=== PATIENT | female | born 1995 | race Caucasian/White ===

== ENCOUNTER 2018-07-07 01:26 | Inpatient (IN) | END 2018-07-09 17:34 | disposition home or self-care (01) | DRG 638 ==

== ENCOUNTER 2019-02-11 15:04 | Emergency (ER) | payer OTHER ==
[~2019-02-11] VITALS: Ht 165.1 cm; Wt 62.2 kg
[~2019-02-11 15:04] MED LIST: CLOT45CR6 VAG; DOCU-144 PO; INSU100I33 SC; METF-849 PO; SITA100T11 PO
[2019-02-11 15:19] VITALS: Ht 165.1 cm; Wt 62.2 kg
--- NOTE | 2019-02-11 17:42 | ERD ---
ER Documentation Chief Complaint Chief Complaint pt bib self with c/o "cyst" to right inner thigh x 2 days HPI Patient is a 23-year-old female with diabetes, reports compliance with DM medi cations, presents to the ER for concerns of a "cyst" in her right groin region times 2-3 days. Patient denies any fevers or chills. Patient denies any bleeding or drainage. She states the affected area is tender to touch. Patient is up-to-date with vaccinations. Patient was referred to the ER by her provider at the [facility] for incision and drainage. Patient states she does have a ongoing history of vaginal candidiasis. She states she often scratches her vaginal area as it is extremely itchy. Patient states she does use topical antifungal creams however they do not help. ROS All systems reviewed and are negative except as per history of present illness. Medications Home Meds Active Scripts Fluconazole* (Diflucan*) 150 Mg Tablet, 150 MG PO ONCE, #2 TAB Take first dose today and 2nd dose 1 week from today Prov:MICHELLE CHAVEZ PA-C 02/11/19 Cephalexin* (Keflex*) 500 Mg Capsule, 500 MG PO TID for 7 Days, CAP Prov:MICHELLE CHAVEZ PA-C 02/11/19 Sulfamethoxazole/Trimethoprim* (Bactrim Ds* Tablet) 1 Each Tablet, 1 TAB PO BID, #14 TAB Prov:MICHELLE CHAVEZ PA-C 02/11/19 Acetaminophen* (Tylophen*) 500 Mg Capsule, 1 CAP PO Q6H PRN for PAIN AND OR ELEVATED TEMP, #20 CAP Prov:MICHELLE CHAVEZ PA-C 02/11/19 Docusate Sodium* (Colace*) 100 Mg Capsule, 100 MG PO BID PRN for CONSTIPATION for 30 Days, #60 CAP Prov:SATHISH WESTON MD 07/09/18 Clotrimazole (Clotrimazole) Vaginal Cream..g., 1 APPLIC VAG HS for 3 Days Prov:SATHISH WESTON MD 07/09/18 Sitagliptin* (Januvia*) 100 Mg Tablet, 100 MG PO DAILY for 30 Days, #30 TAB Prov:SATHISH WESTON MD 07/09/18 Insulin Glargine,Hum.rec.anlog (Basaglar Kwikpen U-100) 100 Unit/1 Ml Insuln.pen, 100 UNIT SC 15 UNITS QHS for 30 Days, EA Prov:SATHISH WESTON MD 07/09/18 Metformin* (Glucophage*) 500 Mg Tab, 1000 MG PO BID WITH MEALS for 30 Days, TAB Prov:SATHISH WESTON MD 07/09/18 Allergies Allergies: Coded Allergies: No Known Allergy (Unverified , 07/06/18) PMhx/Soc Medical and Surgical Hx: pt denies Surgical Hx History of Surgery: No Anesthesia Reaction: No (unknown) Hx Neurological Disorder: No Hx Respiratory Disorders: No Hx Cardiac Disorders: No Hx Psychiatric Problems: No Hx Miscellaneous Medical Probl: Yes (DM) Hx Alcohol Use: Yes (Occasionally) Hx Substance Use: No Hx Tobacco Use: No Smoking Status: Never smoker FmHx Family History: No diabetes Physical Exam Vitals Vital Signs Date Temp Pulse Resp B/P (MAP) Pulse Ox O2 O2 Flow FiO2 Time Delivery Rate 02/11/19 98.4 94 18 124/83 99 15:19 (97) Physical Exam GENERAL: Well-developed, well-nourished female. Appears in no acute distress. Speaking in full sentences. EYES: Pupils are equally reactive bilaterally. EOMs grossly intact. No co njunctival erythema. ENT: Moist mucous membranes. No uvula deviation. No kissing tonsils. NECK: Supple. No meningismus. Normal range of motion of the neck. LUNG: Clear to auscultation bilaterally. No rhonchi, wheezing, rales or coarse breath sounds. HEART: Regular rate and rhythm. No murmurs, rubs or gallops. MANAGER AMBULATORY: BILLY Joyce present during this part of the exam. 2 cm draining abscess noted in the right outer labia. Bilateral inner labia are noted to be erythematous and excoriated. Patient reports history of chronic candidiasis. EXTREMITIES: Equal pulses bilaterally. No peripheral clubbing, cyanosis or edema. No unilateral leg swelling. NEUROLOGIC: Alert and oriented. Moving all four extremities without any difficulty. Normal speech. Steady gait. SKIN: Normal color. Warm and dry. No rashes or lesions. Results 24 hrs Current Medications Medications Dose Sig/Cliff Start Time Status Last (Trade) Ordered Route PRN Stop Time Admin Dose Reason Admin Lidocaine 20 ml ONCE ONCE 02/11/19 DC (Xylocaine SC 18:00 1% (Mdv) 20 02/11/19 18:01 ml) 1 tab ONCE ONCE 02/11/19 Acetaminophen PO 18:30 / 02/11/19 18:31 Hydrocodone Bitart ([place] (5/325)) Procedures/MDM ED COURSE: The patient was stable throughout ED course. I kept the patient and/or family informed of laboratory and diagnostic imaging results throughout the ED course. PROCEDURES: INCISION AND DRAINAGE: The patient was verbally consented prior to procedure. Patient was explained the risks, benefits and alternatives to this procedure. Location: R labia Abscess size: 2 cm Anesthesia: local 1% lidocaine, 3 cc Preparation: The area was prepped in a sterile fashion using betadine x3 cleanses. A sterile field was prepared. Technique: A sterile 11 blade scalpel was used to make a 1 cm linear incision into the abscess. Procedure: A midline abscess incision was made using a sterile scalpel in a linear fashion. Purulent material was expressed with direct pressure. Blunt probing was used to break up loculations. Bleeding was minimal. Packing: half iodoform packing was placed into the wound. The patient tolerated the procedure well with no complications. The wound was dressed in sterile gauze. The patient was neurovascularly intact post-procedure. Post-procedural wound care was discussed with the patient. MEDICATIONS GIVEN: Ponce [place] Leon Patient tolerated medication well with no adverse reactions. Patient reported improvement in pain. MEDICAL DECISION MAKING: This is a 23-year-old female with a history of diabetes, chronic candidiasis, who presents the ER for concerns of a abscess in her left inner labia times 2 days. She did admit to compliance with her DM medications. Patient denies any fevers at home. Vital signs were reviewed. Patient was afebrile. Incision and drainage was performed, see note above. Patient will be given Diflucan for her chronic ongoing candidiasis. Patient was encouraged to avoid scratching the affected area. Wound recheck was advised in 2 days. Low suspicion for deep space infection, sepsis DKA. PRESCRIPTIONS: Tylenol, Bactrim, Keflex, Diflucan DISCHARGE: At this time, the patient is stable for discharge and outpatient management. Post-procedural wound care was discussed with the patient. The patient has been advised to return to the ER in 2 days for a wound check. I have instructed the patient to promptly return to the ER for any new or worsening symptoms including increasing pain, fever, warmth, redness or swelling. The patient and/or family expressed understanding of and agreement with this plan. All questions were answered. Home care instructions were provided. Disclaimer: Inadvertent spelling and grammatical errors are likely due to EHR/dictation software use and do not reflect on the overall quality of patient care. Also, please note that the electronic time recorded on this note does not necessarily reflect the actual time of the patient encounter. Departure Diagnosis: Primary Impression: Abscess Additional Impression: Diabetes Diabetes mellitus type: other specified (including SHIRA) Diabetes mellitus director federal insulin use: unspecified fpc insulin use status Diabetes mellitus complication status: with unspecified complications Qualified Codes: E13.8 - Other specified diabetes mellitus with unspecified complications Condition: Fair Patient Instructions: Abscess, Incision And Drainage Referrals: [facility] YOU HAVE RECEIVED A MEDICAL SCREENING EXAM AND THE RESULTS INDICATE THAT YOU DO NOT HAVE A CONDITION THAT REQUIRES URGENT TREATMENT IN THE EMERGENCY DEPARTMENT. FURTHER EVALUATION AND TREATMENT OF YOUR CONDITION CAN WAIT UNTIL YOU ARE SEEN IN YOUR DOCTORS OFFICE WITHIN THE NEXT 1-2 DAYS. IT IS YOUR RESPONSIBILITY TO MAKE AN APPOINTMENT FOR FOL-UP CARE. IF YOU HAVE A PRIMARY DOCTOR --you should call your primary doctor and schedule an appointment IF YOU DO NOT HAVE A PRIMARY DOCTOR YOU CAN CALL OUR PHYSICIAN REFERRAL HOTLINE AT IF YOU CAN NOT AFFORD TO SEE A PHYSICIAN YOU CAN CHOSE FROM THE FOLLOWING [facility] [address] [facility]. [facility] [address] [facility]. [facility] [address] [facility]. [facility] [address] [facility] [facility] [address] [facility]. [facility]. [address] [facility]. [facility] YOU HAVE RECEIVED A MEDICAL SCREENING EXAM AND THE RESULTS INDICATE THAT YOU DO NOT HAVE A CONDITION THAT REQUIRES URGENT TREATMENT IN THE EMERGENCY DEPARTMENT. FURTHER EVALUATION AND TREATMENT OF YOUR CONDITION CAN WAIT UNTIL YOU ARE SEEN IN YOUR DOCTORS OFFICE WITHIN THE NEXT 1-2 DAYS. IT IS YOUR RESPONSIBILITY TO MAKE AN APPOINTMENT FOR FOLOW-UP CARE. IF YOU HAVE A PRIMARY DOCTOR --you should call your primary doctor and schedule and appointment IF YOU DO NOT HAVE A PRIMARY DOCTOR YOU CAN CALL OUR PHYSICIAN REFERRAL HOTLINE AT . IF YOU CAN NOT AFFORD TO SEE A PHYSICIAN YOU CAN CHOSE FROM THE FOLLOWING [facility] INSTITUTIONS: [facility] [address] [place] [address] [facility] [address] [place] [address] [facility] + [facility] [address] [place] [address] Additional Instructions: Wound recheck advised in 2 days. Take antibiotics as prescribed. Call your primary care doctor TOMORROW for an appointment during the next 1-2 days.See the doctor sooner or return here if your condition worsens before your appointment time. MICHELLE CHAVEZ PA-C Feb 11, 2019 17:42
[2019-02-11] MEDS ORDERED: LIDOCAINE 1% (MDV) 20 ML INJ SC ONE (18:00)
[2019-02-11] MEDS ORDERED: ACET500C5 PO (18:07)
[2019-02-11] MEDS ORDERED: SULF1TAB31 PO (18:07)
[2019-02-11] MEDS ORDERED: CEPH-443 PO (18:08)
[2019-02-11] MEDS ORDERED: FLUC150T PO (18:08)
[2019-02-11] MEDS ORDERED: HYDROCODONE/APAP (5/325) TAB PO ONE (18:30)
== END 2019-02-11 18:15 | disposition home or self-care (01) ==
LOC: FTE 15:04
DX: N76.4 Abscess of vulva (principal); E13.8 Other specified diabetes mellitus with unspecified complications; Z79.4 Long term (current) use of insulin
CPT/HCPCS: 56405; Z7502; Z7610

== ENCOUNTER 2019-02-13 10:21 | Emergency (ER) | payer OTHER ==
[~2019-02-13] VITALS: Wt 64.5 kg
[~2019-02-13 10:21] MED LIST changes: +ACET500C5 PO; +CEPH-443 PO; +FLUC150T PO; +SULF1TAB31 PO
[2019-02-13 10:23] VITALS: BP 121/73; PULSE 96; RESP 20
--- NOTE | 2019-02-13 12:29 | ERD ---
ER Documentation Chief Complaint Chief Complaint here for 2 day wound check for and I&D done 2 days ago. no complaints HPI This is a 23-year-old female with a history of diabetes mellitus who presents ED for wound check. Patient had an incision and drainage performed on abscess near the right groin 2 days ago. Patient states the packing is in place. Patient admits to some drainage. Denies any redness, swelling, severe pain or fever or chills. Taking antibiotics as prescribed ROS All systems reviewed and are negative except as per history of present illness. Medications Home Meds Active Scripts Fluconazole* (Diflucan*) 150 Mg Tablet, 150 MG PO ONCE, #2 TAB Take first dose today and 2nd dose 1 week from today Prov:MICHELLE CHAVEZ PA-C 02/11/19 Cephalexin* (Keflex*) 500 Mg Capsule, 500 MG PO TID for 7 Days, CAP Prov:MICHELLE CHAVEZ PA-C 02/11/19 Sulfamethoxazole/Trimethoprim* (Bactrim Ds* Tablet) 1 Each Tablet, 1 TAB PO BID, #14 TAB Prov:MICHELLE CHAVEZ PA-C 02/11/19 Acetaminophen* (Tylophen*) 500 Mg Capsule, 1 CAP PO Q6H PRN for PAIN AND OR ELEVATED TEMP, #20 CAP Prov:MICHELLE CHAVEZ PA-C 02/11/19 Docusate Sodium* (Colace*) 100 Mg Capsule, 100 MG PO BID PRN for CONSTIPATION for 30 Days, #60 CAP Prov:SATHISH WESTON MD 07/09/18 Clotrimazole (Clotrimazole) Vaginal Cream..g., 1 APPLIC VAG HS for 3 Days Prov:SATHISH WESTON MD 07/09/18 Sitagliptin* (Januvia*) 100 Mg Tablet, 100 MG PO DAILY for 30 Days, #30 TAB Prov:SATHISH WESTON MD 07/09/18 Insulin Glargine,Hum.rec.anlog (Basaglar Kwikpen U-100) 100 Unit/1 Ml Insuln.pen, 100 UNIT SC 15 UNITS QHS for 30 Days, EA Prov:SATHISH WESTON MD 07/09/18 Metformin* (Glucophage*) 500 Mg Tab, 1000 MG PO BID WITH MEALS for 30 Days, TAB Prov:SATHISH WESTON MD 07/09/18 Allergies Allergies: Coded Allergies: No Known Allergy (Unverified , 02/13/19) PMhx/Soc History of Surgery: No Anesthesia Reaction: No (unknown) Hx Neurological Disorder: No Hx Respiratory Disorders: No Hx Cardiac Disorders: No Hx Psychiatric Problems: No Hx Miscellaneous Medical Probl: Yes (DM) Hx Alcohol Use: Yes (Occasionally) Hx Substance Use: No Hx Tobacco Use: No Smoking Status: Never smoker FmHx Family History: No diabetes Physical Exam Vitals Vital Signs Date Temp Pulse Resp B/P (MAP) Pulse Ox O2 O2 Flow FiO2 Time Delivery Rate 02/13/19 98.5 96 20 121/73 99 10:23 (89) Physical Exam Const: No acute distress Head: Atraumatic Eyes: Normal Conjunctiva ENT: Normal External Ears, Nose and Mouth. Neck: Full range of motion. No meningismus. Resp: Clear to auscultation bilaterally Cardio: Regular rate and rhythm, no murmur Skin: There is a small draining abscess in patient's right groin area with packing in place, no lymphatic streaking, no swelling, redness or warmth, Neur: Awake and alert Psych: Normal Mood and Affect Procedures/MDM ER COURSE: The patient was stable throughout ED course. I kept the patient and/or family informed of laboratory and diagnostic imaging results throughout the emergency room course. The patient was promptly evaluated and a treatment plan was devised based on H&P and other data. This plan was discussed with the patient who agreed and had no further questions or concerns prior to discharge. MEDICAL DECISION MAKIN-year-old female presents ED for wound check of abscess that was drained 2 days ago. Packing was removed in the emergency department and the abscess is small and does not require repacking. Wound was dressed in the emergency department. there is no surrounding erythema, warmth, tenderness or lymphatic streaking. Low suspicion for deep space infection, sepsis. patient's vitals are stable and she can be managed with close outpatient follow-up. Advised patient follow-up with primary care in the next 48 hours. Advised to return to ED with any worsening symptoms. DISPOSITION PLAN: We discussed follow up with the patient's primary care doctor within 24 to 48 hours. Patient counseled regarding my diagnostic impression and care plan. Prior to discharge all questions answered. Pt agrees with treatment plan and understands strict return precautions. Precautionary instructions provided including instructions to return to the ER if not improving or for any worsening or changing symptoms or concerns. ExitCare instructions provided. Prior to discharge, patients vital signs have been reviewed SPECIALIST FOLLOW UP RECOMMENDED: None Patient has been advised to follow up with primary care in 1-2 days. Disclaimer: Inadvertent spelling and grammatical errors are likely due to EHR/dictation software use and do not reflect on the overall quality of patient care. Also, please note that the electronic time recorded on this note does not necessarily reflect the actual time of the patient encounter. Departure Diagnosis: Primary Impression: Encounter for wound re-check Condition: Stable Patient Instructions: Wound Care, Abscess, Packing Removal Referrals: [facility] YOU HAVE RECEIVED A MEDICAL SCREENING EXAM AND THE RESULTS INDICATE THAT YOU DO NOT HAVE A CONDITION THAT REQUIRES URGENT TREATMENT IN THE EMERGENCY DEPARTMENT. FURTHER EVALUATION AND TREATMENT OF YOUR CONDITION CAN WAIT UNTIL YOU ARE SEEN IN YOUR DOCTORS OFFICE WITHIN THE NEXT 1-2 DAYS. IT IS YOUR RESPONSIBILITY TO MAKE AN APPOINTMENT FOR FOLOW-UP CARE. IF YOU HAVE A PRIMARY DOCTOR --you should call your primary doctor and schedule an appointment IF YOU DO NOT HAVE A PRIMARY DOCTOR YOU CAN CALL OUR PHYSICIAN REFERRAL HOTLINE AT IF YOU CAN NOT AFFORD TO SEE A PHYSICIAN YOU CAN CHOSE FROM THE FOLLOWING [facility] CLINICS [facility] [address] [facility]. [facility] [address] [facility] [facility] [address] [facility]. [facility] [address] [facility]. [facility] [address] [facility]. [facility]. [address] Additional Instructions: Patient advised to return to the ED immediately for new or worsening symptoms. Patient advised to follow up with primary care provider in the next 24-48 hours. Patient verbalized understanding and agrees with treatment plan and course of ac tion. If patient has no primary care they may follow up with one of the [facility] clinics listed on the following page or one of the options listed below [facility] [address] [place] [address] or [facility] [address] [place] [address] or [facility] [address] [place] [address] EMILIE BECK PA-C Feb 13, 2019 12:29
== END 2019-02-13 12:42 | disposition home or self-care (01) ==
LOC: FTE 10:21
DX: Z48.01 Encounter for change or removal of surgical wound dressing (principal); E11.9 Type 2 diabetes mellitus without complications; Z79.4 Long term (current) use of insulin
CPT/HCPCS: Z7502; Z7610; 99281

== ENCOUNTER 2019-02-23 16:18 | Emergency (ER) | payer SELFPAY | END 2019-02-23 17:00 | disposition left against medical advice (07) | LOC: E/R 16:18 | DX: Z53.21 Procedure and treatment not carried out due to patient leaving prior to being seen by health care provider (principal) ==